=== PATIENT | female | born 1990 | race Caucasian/White ===

== ENCOUNTER 2017-01-05 11:35 | Emergency (ER) | payer OTHER ==
[~2017-01-05] VITALS: Ht 152.4 cm; Wt 54.5 kg
[2017-01-05 11:37] VITALS: BP 126/87; PULSE 58; TEMP 98.1
[2017-01-05] MEDS ORDERED: AMOXICILLIN 8751 TAB PO (12:17)
== END 2017-01-05 12:40 | disposition home or self-care (01) ==
LOC: COL.ER 11:35
DX: S60.475A Other superficial bite of left ring finger, initial encounter (principal); Z23 Encounter for immunization; W55.01XA Bitten by cat, initial encounter

== ENCOUNTER 2017-01-08 17:36 | Outpatient (RCR) | payer OTHER ==
[~2017-01-08] VITALS: Ht 152.4 cm; Wt 54.5 kg
[~2017-01-08 17:36] MED LIST: AMOXICILLIN 8751 TAB PO
[2017-01-08 17:53] VITALS: BP 107/72; PULSE 67; TEMP 98.3
== END 2017-01-08 17:37 | disposition home or self-care (01) ==
LOC: COL.ER 17:36
DX: Z20.3 Contact with and (suspected) exposure to rabies (principal)